=== PATIENT | female | born 1945 | race Two or more races ===

== ENCOUNTER → 2019-09-20 | Outpatient (CLI) | payer MEDICARE, OTHER ==
[~2019-09-20] MED LIST: ATOR20TA37 PO; CARB200T4 PO; CELE200C PO; CHOL10003 PO; Collagen PO; HYDR12.517 PO; INSU100I13 SQ; METF10007 PO; MULT-709 PO; OMEG1CAP23 PO; SAXA5TAB PO; TURM1POW2 PO
[2019-09-20 15:43] LABS: BASOPHILS # (AUTO) 0.04 x10^3/uL (0-0.1); BASOPHILS % (AUTO) 1 % (0-1); EOSINOPHILS # (AUTO) 0.11 x10^3/uL (0-0.4); EOSINOPHILS % (AUTO) 2 % (1-7); LYMPHOCYTES # (AUTO) 2.02 x10^3/uL (1-3.4); LYMPHOCYTES % (AUTO) 28 % (22-44); MD NO; MEAN CORPUSCULAR HEMOGLOBIN 30.6 pg (27.0-34.8); MEAN CORPUSCULAR HGB CONC 32.4 g/dL (32.4-35.8); MEAN CORPUSCULAR VOLUME 94.3 fL (80-100); MEAN PLATELET VOLUME 8.4 fL (7.4-10.4); MONOCYTES # (AUTO) 0.38 x10^3/uL (0.2-0.8); MONOCYTES % (AUTO) 5 % (2-9); NEUTROPHILS # (AUTO) 4.68 x10^3/uL (1.8-6.8); NEUTROPHILS % (AUTO) 65 % (42-75); PLATELET COUNT 209 x10^3/uL (130-400); RED BLOOD COUNT 4.31 x10^6/uL (3.82-5.3); RED CELL DISTRIBUTION WIDTH 14.9 % (9.6-15.2)
[2019-09-20 15:52] LABS: INTERNATIONAL NORMALIZED RATIO 0.97 (0.93-1.1); PROTHROMBIN TIME 10.3 Seconds (9.6-11.5)
[2019-09-20 15:54] LABS: ALANINE AMINOTRANSFERASE 34 U/L (12-78); ALBUMIN 3.4 g/dL (3.4-5.0); ANION GAP 5 mmol/L (5-15); CALCIUM 8.9 mg/dL (8.5-10.1); CHLORIDE 107 mmol/L (98-107); CREATININE 0.65 mg/dL (0.55-1.02)
[2019-09-20 15:56] LABS: ALKALINE PHOSPHATASE 68 U/L (45-117); BILIRUBIN,TOTAL 0.4 mg/dL (0.2-1.0); TOTAL PROTEIN 6.9 g/dL (6.4-8.2)
== END | disposition home or self-care (01) ==
LOC: STAR 14:48
PROVIDERS: ATTEND Orthopaedic Surgery
DX: Z01.818 Encounter for other preprocedural examination (principal); M16.11 Unilateral primary osteoarthritis, right hip
CPT/HCPCS: 36415; 80053; 83036; 85025; 85610; 85730; 87081; 93005

== ENCOUNTER 2019-09-26 10:36 | Observation (INO) | payer MEDICARE, OTHER ==
[~2019-09-26] VITALS: Ht 157.5 cm; Wt 85.0 kg
[2019-09-26] MEDS: NS + 20MEQ KCL 1,000 ML IV SCH ×2 (06:43→19:15)
[2019-09-26] MEDS: HYDROCHLOROTHIAZIDE 12.5 MG CAPSULE PO SCH (09:00)
[~2019-09-26 10:36] MED LIST changes: +ACETAMINOPHEN 325 MG TABLET PO PRN; +BISACODYL 10 MG SUPP PR PRN; +DIPHENHYDRAMINE 25 MG CAPSULE PO PRN; +EPINEPHRINE 1 MG/ML, 1ML ONE; +KETOROLAC 60 MG/2 ML ONE; +MAGNESIUM HYDROXIDE 8%, 30ML UDC PO PRN; +ONDANSETRON 2MG/ML, 2ML IV PRN; +ONDANSETRON 4 MG TABLET PO PRN; +OXYcodone IR 5MG TABLET PO PRN; +ROPIvacaine/PF 0.5%, 20 ML ONE; +ROPIvacaine/PF 0.5%, 30 ML ONE; +SENNA/DOCUSATE TABLET PO PRN; +SODIUM CHLORIDE 0.9% 100 ML ONE; +TRANEXAMIC ACID 100 MG/ML, 10ML ONE; +VANCOMYCIN 1,000 MG ONE; +ZOLPIDEM 5MG TABLET PO PRN
[2019-09-26] MEDS ORDERED: LACTATED RINGERS 1,000 ML IV SCH (11:09)
[2019-09-26 11:29] VITALS: BP 144/80
[2019-09-26] MEDS ORDERED: GABAPENTIN 300 MG CAPSULE PO ONE (11:30)
[2019-09-26] MEDS ORDERED: CHLORHEXIDINE 15 ML UDC MM ONE (11:30)
[2019-09-26] MEDS ORDERED: ACETAMINOPHEN 500 MG TABLET PO ONE (11:30)
[2019-09-26] MEDS ORDERED: ACETAMINOPHEN 500 MG TABLET ONE (11:37)
[2019-09-26] MEDS ORDERED: GABAPENTIN 300 MG CAPSULE ONE (11:37)
[2019-09-26] MEDS ORDERED: CHLORHEXIDINE 15 ML UDC ONE (11:37)
[2019-09-26] MEDS ORDERED: FENTANYL PF 250 MCG/5ML ONE (12:13)
[2019-09-26] MEDS ORDERED: CEFAZOLIN 1,000 MG ONE ×2 (12:34)
[2019-09-26] MEDS ORDERED: LIDOCAINE-MPF 2% ,5ML ONE (12:40)
[2019-09-26] MEDS ORDERED: SUCCINYLCHOLINE 20 MG/ML, 10ML ONE (12:40)
[2019-09-26] MEDS ORDERED: PROPOFOL 10 MG/ML, 20ML ONE (12:40)
[2019-09-26] MEDS ORDERED: DEXAMETHASONE 4 MG/ML, 1ML ONE (12:40)
[2019-09-26] MEDS ORDERED: ONDANSETRON 2MG/ML, 2ML IVPush PRN ×2 (13:00→13:30)
[2019-09-26] MEDS ORDERED: OXYcodone 5 MG/5 ML ORAL.SOL UDC PO PRN ×2 (13:00→13:30)
[2019-09-26] MEDS ORDERED: ONDANSETRON 2MG/ML, 2ML ONE (13:18)
[2019-09-26] MEDS ORDERED: FENTANYL PF 100 MCG/2ML IV PRN (13:30)
[2019-09-26] MEDS: FENTANYL PF 100 MCG/2ML IV PRN ×2 (13:59→14:07)
[2019-09-26] MEDS ORDERED: FENTANYL PF 100 MCG/2ML ONE ×2 (14:05→14:14)
[2019-09-26] MEDS ORDERED: OXYcodone 5 MG/5 ML ORAL.SOL UDC ONE (14:05)
[2019-09-26] MEDS ORDERED: HYDROmorphone 1 MG/ML, 1ML INJ ONE (14:19)
[2019-09-26] MEDS ORDERED: HYDROmorphone 1 MG/ML, 1ML INJ IVPush PRN (14:30)
[2019-09-26] MEDS: LINAGLIPTIN 5 MG TAB PO SCH (15:07)
[2019-09-26] MEDS ORDERED: LANTUS MC SCH (15:30)
[2019-09-26] MEDS: CARBAMAZEPINE 200 MG TABLET PO SCH ×2 (16:00→20:35)
[2019-09-26] MEDS: ASPIRIN 81 MG TABLET EC PO SCH (17:15)
[2019-09-26] MEDS: HYDROcodone/APAP 5/325 TABLET PO PRN (19:12)
[2019-09-26 20:00] VITALS: BP 119/74
[2019-09-26] MEDS: CEFAZOLIN PMX 2GM/50ML 50 ML IVPB SCH (20:35)
[2019-09-26] MEDS: DOCUSATE 100 MG CAPSULE PO SCH (20:35)
[2019-09-26] MEDS: metFORMIN 500 MG TABLET PO SCH (20:35)
[2019-09-26] MEDS ORDERED: INSULIN GLARGINE 100 UNITS/ML, PEN SQ-INSULIN SCH (21:00)
[2019-09-26] MEDS ORDERED: ATORVASTATIN 20 MG TABLET PO SCH (21:00)
[2019-09-27 00:52] VITALS: BP 107/70
[2019-09-27] MEDS: HYDROcodone/APAP 5/325 TABLET PO PRN ×2 (01:33→06:24)
[2019-09-27] MEDS: CEFAZOLIN PMX 2GM/50ML 50 ML IVPB SCH (04:47)
[2019-09-27] MEDS: ASPIRIN 81 MG TABLET EC PO SCH (05:29)
[2019-09-27 06:15] VITALS: BP 115/69
[2019-09-27] MEDS ORDERED: OXYC5TAB2 PO (08:38)
[2019-09-27] MEDS ORDERED: TRAM50TA2 PO (08:39)
[2019-09-27] MEDS ORDERED: INSULIN GLARGINE 100 UNITS/ML, PEN SQ-INSULIN SCH (09:00)
[2019-09-27] MEDS: DOCUSATE 100 MG CAPSULE PO SCH (09:08)
[2019-09-27] MEDS: LINAGLIPTIN 5 MG TAB PO SCH (09:08)
[2019-09-27] MEDS: metFORMIN 500 MG TABLET PO SCH (09:08)
[2019-09-27] MEDS: HYDROCHLOROTHIAZIDE 12.5 MG CAPSULE PO SCH (09:09)
[2019-09-27] MEDS: CARBAMAZEPINE 200 MG TABLET PO SCH (09:09)
[2019-09-27] MEDS: NS + 20MEQ KCL 1,000 ML IV SCH (09:09)
== END 2019-09-27 12:24 | disposition home or self-care (01) ==
LOC: OUT 10:36 → 3N 14:57 → OUT 20:59 → 3N 21:00 → DCLOUNGE 09-27 12:15
PROVIDERS: ADMIT Orthopaedic Surgery; ATTEND Orthopaedic Surgery
DX: M17.11 Unilateral primary osteoarthritis, right knee (principal); I10 Essential (primary) hypertension; E78.5 Hyperlipidemia, unspecified; E11.9 Type 2 diabetes mellitus without complications; M79.7 Fibromyalgia; M53.80 Other specified dorsopathies, site unspecified; H40.9 Unspecified glaucoma; Z79.4 Long term (current) use of insulin
CPT/HCPCS: 27130; 36415; 72170; 73501; 76000; 82962; 85014; 85018; 87635; 96365; 96366; 96375; 97110; 97163; 97165; 97530; C1713; C1776; G0378; J0171; J0330; J0690; J1100; J1170; J1815; J1885; J2405; J2704; J2795; J3010; J3370; J3480; J3490; J7120

== ENCOUNTER 2019-10-31 13:31 | Day surgery (SDC) | payer MEDICARE, OTHER ==
[~2019-10-31] VITALS: Ht 157.5 cm; Wt 83.5 kg
[~2019-10-31 13:31] MED LIST changes: -BISACODYL 10 MG SUPP PR PRN; -DIPHENHYDRAMINE 25 MG CAPSULE PO PRN; -EPINEPHRINE 1 MG/ML, 1ML ONE; +HYDROmorphone 1 MG/ML, 1ML INJ IM PRN; +KETOROLAC 30 MG/1 ML IVPush SCH; -KETOROLAC 60 MG/2 ML ONE; -MAGNESIUM HYDROXIDE 8%, 30ML UDC PO PRN; -ONDANSETRON 2MG/ML, 2ML IV PRN; +ONDANSETRON 2MG/ML, 2ML IVPush PRN; -ONDANSETRON 4 MG TABLET PO PRN; +OXYC5TAB2 PO; +OXYcodone 5 MG/5 ML ORAL.SOL UDC PO PRN; -OXYcodone IR 5MG TABLET PO PRN; +PLEASE ENTER HEIGHT AND WEIGHT MC SCH; +PROMETHAZINE 25 MG/ML, 1ML IM PRN; -ROPIvacaine/PF 0.5%, 20 ML ONE; -ROPIvacaine/PF 0.5%, 30 ML ONE; -SENNA/DOCUSATE TABLET PO PRN; -SODIUM CHLORIDE 0.9% 100 ML ONE; +TRAM50TA2 PO; -TRANEXAMIC ACID 100 MG/ML, 10ML ONE; -VANCOMYCIN 1,000 MG ONE; -ZOLPIDEM 5MG TABLET PO PRN
[2019-10-31] MEDS ORDERED: FENTANYL PF 100 MCG/2ML ONE ×2 (13:45→15:53)
[2019-10-31] MEDS ORDERED: CHLORHEXIDINE 15 ML UDC MM ONE (14:30)
[2019-10-31] MEDS ORDERED: CHLORHEXIDINE 15 ML UDC ONE (14:30)
[2019-10-31 14:40] VITALS: BP 138/83
[2019-10-31] MEDS ORDERED: LACTATED RINGERS 1,000 ML IV SCH (15:00)
[2019-10-31] MEDS ORDERED: CEFAZOLIN 1,000 MG ONE (15:01)
[2019-10-31] MEDS ORDERED: SUCCINYLCHOLINE 20 MG/ML, 10ML ONE (15:01)
[2019-10-31] MEDS ORDERED: DEXAMETHASONE 4 MG/ML, 1ML ONE (15:01)
[2019-10-31] MEDS ORDERED: ONDANSETRON 2MG/ML, 2ML ONE (15:01)
[2019-10-31] MEDS ORDERED: PROPOFOL 10 MG/ML, 20ML ONE (15:01)
[2019-10-31] MEDS ORDERED: HYDROcodone/APAP 7.5-325MG/15ML UDC PO PRN (15:30)
[2019-10-31] MEDS ORDERED: PROMETHAZINE 25 MG/ML, 1ML IVPush PRN (15:30)
[2019-10-31] MEDS ORDERED: morphine SULFATE 10 MG/ML, 1ML IVPush PRN (15:30)
[2019-10-31] MEDS ORDERED: OXYcodone 5 MG/5 ML ORAL.SOL UDC PO PRN (15:30)
[2019-10-31] MEDS ORDERED: OXYcodone 5 MG/5 ML ORAL.SOL UDC ONE (15:53)
[2019-10-31] MEDS: FENTANYL PF 100 MCG/2ML IV PRN ×3 (15:55→16:10)
[2019-10-31] MEDS ORDERED: KETOROLAC 30 MG/1 ML ONE (16:07)
== END 2019-10-31 18:45 | disposition home or self-care (01) ==
LOC: OR 13:31
PROVIDERS: ATTEND Orthopaedic Surgery
DX: T81.32XA Disruption of internal operation (surgical) wound, not elsewhere classified, initial encounter (principal); Z11.59 Encounter for screening for other viral diseases; E11.9 Type 2 diabetes mellitus without complications; I10 Essential (primary) hypertension; M79.7 Fibromyalgia; M06.9 Rheumatoid arthritis, unspecified; E66.9 Obesity, unspecified; Z68.34 Body mass index [BMI] 34.0-34.9, adult; Z79.82 Long term (current) use of aspirin; Z79.4 Long term (current) use of insulin; Z79.899 Other long term (current) drug therapy; Z96.641 Presence of right artificial hip joint; Y83.8 Other surgical procedures as the cause of abnormal reaction of the patient, or of later complication, without mention of misadventure at the time of the procedure
CPT/HCPCS: 13160; 82962; 87635; J0330; J0690; J1100; J1885; J2405; J2704; J3010